=== PATIENT | male | born 1970 | race Caucasian/White ===

== ENCOUNTER 2017-05-03 18:13 | Emergency (ER) | payer MEDICAID, OTHER ==
[~2017-05-03] VITALS: Ht 170.2 cm; Wt 90.0 kg
[2017-05-03 18:47] VITALS: Ht 170.2 cm; Wt 90.0 kg
[2017-05-03] MEDS ORDERED: ONDANSETRON (ODT) 4 MG TAB ODT STA (21:06)
[2017-05-03] MEDS ORDERED: HYDROCODONE/APAP (5/325) TAB PO ONE (21:30)
[2017-05-03] MEDS ORDERED: HYDR-906 PO (22:18)
[2017-05-03] MEDS ORDERED: GABA300C16 PO (22:19)
--- NOTE | 2017-05-03 22:29 | ERD ---
ER Documentation Chief Complaint Chief Complaint BLE pain and numbness r/t to gout per pt. "my medication is not working" HPI 47-year-old male with a history of insulin-dependent type 2 diabetes presents the emergency department for complaints of tingling to bilateral upper and lower extremities which has been intermittent for the past 3 months. He rates his discomfort as an intermittent 5 out of 10 and worse with ambulation. Patient states he has been seen by his doctor who is prescribed gabapentin but states that his symptoms are not well controlled. He denies fever, chills, redness, swelling, injury, fall, chest pain, shortness of breath, abdominal pain , vomiting or diarrhea. ROS All systems reviewed and are negative except as per history of present illness. Medications Home Meds Active Scripts Gabapentin* (Gabapentin*) 300 Mg Capsule, 300 MG PO BID, #60 CAP Prov:PURA PEÑALOZA PA-C 05/03/17 Hydrocodone/Acetaminophen ([place] 5-325 Tablet) 1 Each Tablet, 24 TAB PO Q6H Y for PAIN, #7 TAB Prov:PURA PEÑALOZA PA-C 05/03/17 Allergies Allergies: Coded Allergies: No Known Allergy (Unverified , 05/03/17) PMhx/Soc Hx Miscellaneous Medical Probl: Yes (DIABETES, GOUT) Hx Alcohol Use: No Hx Substance Use: Yes Hx Tobacco Use: Yes Smoking Status: Current every day smoker Physical Exam Vitals Vital Signs Date Time Temp Pulse Resp B/P Pulse Ox O2 Delivery O2 Flow Rate FiO2 05/03/17 18:47 98.0 100 18 134/86 98 Physical Exam Const: Well-developed, well-nourished, in no acute distress Head: Atraumatic Eyes: Normal Conjunctiva ENT: Normal External Ears, Nose and Mouth. Neck: Full range of motion..~ No meningismus. Resp: Clear to auscultation bilaterally Cardio: Regular rate and rhythm, no murmurs Abd: Soft, non tender, non distended. Normal bowel sounds Skin: No petechiae or rashes Back: No midline or flank tenderness Ext: No erythema, swelling, or increased warmth at the bilateral upper and lower extremities. No evidence of surface trauma, ecchymosis, or focal tenderness. Patient has good range of motion and strength against resistance at ankle, knees, elbows, and shoulders. Patient able to bear full weight and ambulate. Brisk capillary refill at upper and lower distal extremities. Extremities warm and well-perfused. Radial, median, ulnar motor function intact at bilateral upper extremities. Sensation intact to light touch upper extremities. Decreased sensation at lower extremities. Patient states this is chronic. No cyanosis, or edema. No ulceration. Skin intact. Neur: Sensation diminished to light touch at distal lower extremities. Patient states this is chronic. Awake and alert Psych: Normal Mood and Affect Results 24 hrs Current Medications Medications (Trade) Dose Ordered Sig/Mj Route PRN Reason Start Time Stop Time Status Last Admin Dose Admin Acetaminophen/ Hydrocodone Bitart ([place] (5/325)) 1 tab ONCE ONCE PO 05/03/17 21:30 05/03/17 21:31 DC 05/03/17 21:13 Ondansetron HCl (Zofran Odt) 4 mg ONCE STAT ODT 05/03/17 21:06 05/03/17 21:10 DC 05/03/17 21:13 Procedures/MDM This is a 47-year-old male with a history of insulin-dependent diabetes and chronic neuropathy who presents for complaints of numbness, tingling and pain to upper and lower extremities. Patient states that his symptoms are unchanged from previous experiences but notes that the medication prescribed from his doctor is not controlling his symptoms well. He denied fever, chills, major swelling, erythema or recent injury. Vital signs reviewed and within normal limits upon arrival. Physical exam without evidence of erythema or swelling of the extremities. There is no surface trauma bruising or decreased perfusion. Patient noted decreased sensation of the lower extremities which is chronic for him. He denied chest pain, shortness of breath, abdominal pain. History and physical exam consistent with pain due to diabetic neuropathy. Low suspicion for acute DVT, PE, cellulitis, diabetic ulcer, severe systemic illness or sepsis. Patient received pain medication while in the emergency department and reported improvement of symptoms. I will refill his gabapentin and provide him with a short course of pain medication. He is to return to his primary care provider in 1-2 days for follow-up. Return precautions discussed. Based on patient's history of present illness and physical examination the decision was made to discharge. The patient was re-evaluated after ED treatment and stabilizing measures, and symptoms have improved. There is no evidence of life threatening injuries or illnesses at this time. On re-examination, patient resting in no distress, stable vital signs, reports feeling better and safe for discharge with outpatient follow up with PMD in 1-2 days. Patient given return precautions. Departure Diagnosis: Primary Impression: Neuropathy Additional Impressions: Bilateral leg pain Tingling in extremities Condition: Good Patient Instructions: Neuropathy, Peripheral Additional Instructions: Call your primary care doctor TOMORROW for an appointment during the next 1-2 days.See the doctor sooner or return here if your condition worsens before your appointment time. PURA PEÑALOZA PA-C May 03, 2017 22:29
== END 2017-05-03 22:29 | disposition home or self-care (01) ==
LOC: FTE 18:13
DX: G62.9 Polyneuropathy, unspecified (principal); F17.210 Nicotine dependence, cigarettes, uncomplicated; E11.9 Type 2 diabetes mellitus without complications
CPT/HCPCS: Z7502; Z7610; 99284